=== PATIENT | female | born 1965 | race Asian ===

== ENCOUNTER → 2017-01-20 | Outpatient (CLI) | payer OTHER ==
--- NOTE | 2017-01-20 11:48 | RADRPT ---
PROCEDURE: XR Chest CLINICAL INDICATION: Kidney stones TECHNIQUE: PA radiograph COMPARISON: None available FINDINGS: Borderline widening of the mediastinum. The cardiac silhouette, mediastinum, and pulmonary brandon are otherwise unremarkable. Pulmonary vasculature is within normal limits. The visualized pleural surfaces are unremarkable. The lung parenchyma is unremarkable. IMPRESSION: Borderline widening of the mediastinum which may be from vascular tortuosity or enlargement. Compare to prior chest imaging studies. RPTAT: TT Physician Radha Date Time Electronically viewed and signed by Physician Radha on 01/20/2017 11:48 JS/
[2017-01-21 15:38] LABS: BASOPHILS % 0.4 % (0.0-2.0); EOSINOPHILS # 0.2 10^3/ul (0.0-0.5); HEMATOCRIT 41.9 % (37.0-47.0); HEMOGLOBIN 13.9 g/dl (12.0-16.0); LYMPHOCYTES # 2.3 10^3/ul (0.8-2.9); LYMPHOCYTES % 30.9 % (15.0-51.0); MEAN CORPUSCULAR HGB CONC 33.2 g/dl (32.0-37.0); MEAN CORPUSCULAR VOLUME 84.3 fl (82.0-101.0); MEAN PLATELET VOLUME 8.4 fl (7.4-10.4); MONOCYTE # 0.4 10^3/ul (0.3-0.9); MONOCYTES % 5.6 % (0.0-11.0); NEUTROPHIL # 4.6 10^3/ul (1.6-7.5); PLATELET COUNT 350 10^3/UL (140-415); RED BLOOD COUNT 4.97 10^6/ul (4.20-5.40); RED CELL DISTRIBUTION WIDTH 13.2 % (11.5-14.5); WHITE BLOOD COUNT 7.5 10^3/ul (4.8-10.8)
[2017-01-21 15:47] LABS: ADD UMIC YES; UR ASCORBIC ACID NEGATIVE (NEGATIVE); UR BACTERIA FEW /HPF (NONE SEEN); UR BILIRUBIN (Dip) NEGATIVE (NEGATIVE); UR BLOOD (Dip) 2+ mg/dL (NEGATIVE); UR CLARITY CLEAR (CLEAR); UR COLOR YELLOW (YELLOW); UR GLUCOSE (Dip) NEGATIVE (NEGATIVE); UR KETONES (Dip) 1+ mg/dL (NEGATIVE); UR LEUKOCYTE ESTERASE (Dip) TRACE Leu/ul (NEGATIVE); UR NITRITE (Dip) NEGATIVE (NEGATIVE); UR RBC 14 /HPF (0-5); UR SPECIFIC GRAVITY (Dip) 1.009 (1.003-1.030); UR SQUAMOUS EPITHELIAL CELL FEW /HPF (FEW); UR TOTAL PROTEIN (Dip) NEGATIVE (NEGATIVE); UR UROBILINOGEN (Dip) NEGATIVE (NEGATIVE)
[2017-01-21 15:52] LABS: ALANINE AMINOTRANSFERASE 23 IU/L (13-69); ALBUMIN 4.6 g/dl (3.3-4.9); ALBUMIN/GLOBULIN RATIO 1.48; ALKALINE PHOSPHATASE 46 IU/L (42-121); ANION GAP 14 (8-16); ASPARTATE AMINO TRANSFERASE 21 IU/L (15-46); BILIRUBIN,INDIRECT 0.6 mg/dl (0-1.1); BILIRUBIN,TOTAL 0.6 mg/dl (0.2-1.3); BLOOD UREA NITROGEN 10 mg/dl (7-20); CALCIUM 9.8 mg/dl (8.4-10.2); CARBON DIOXIDE 28 mmol/L (21-31); CHLORIDE 103 mmol/L (97-110); CHOL/HDL RATIO 4.1 RATIO; CHOLESTEROL 267 mg/dl (100-200); CREATININE 0.71 mg/dl (0.44-1.00); GLUCOSE 98 mg/dl (70-220); HDL CHOLESTEROL 64 mg/dl (37-92); PHOSPHORUS 3.6 mg/dl (2.5-4.9); POTASSIUM 4.2 mmol/L (3.5-5.1); SODIUM 141 mmol/L (135-144); TOTAL PROTEIN 7.7 g/dl (6.1-8.1); TRIGLYCERIDES 222 mg/dl (0-149)
[2017-01-21 16:01] LABS: SCRET 0.71 mg/dl (0.44-1.00)
[2017-01-21 16:06] LABS: INR 0.93; PROTIME 12.5 Sec (12.2-14.2)
[2017-01-21 16:07] LABS: PARTIAL THROMBOPLASTIN TIME 32.4 Sec (25.0-35.0)
[2017-01-21 16:08] LABS: PROTEIN/CREAT RATIO 0.14 RATIO
--- NOTE | 2017-01-22 13:14 | RADRPT ---
Vent Rate: 76 bpm RR Interval: 0 msec MD Interval: 140 msec QRS Duration: 88 msec QT Interval: 410 msec QTC Interval: 461 msec P-R-T [place]: 64 - 73 - 67 degrees Normal sinus rhythm with sinus arrhythmia Normal ECG Electronically Signed By: Jarrell Martinez [id number]
== END | disposition home or self-care (01) ==
LOC: LAB 09:51
DX: Z52.4 Kidney donor (principal)
CPT/HCPCS: 71010; 80053; 80061; 81001; 81003; 82043; 82570; 82575; 84100; 84156; 84702; 85025; 85610; 85730; 86592; 86644; 86664; 86703; 86706; 86709; 86803; 86850; 86900; 86901; 87086; 87340; 93005

== ENCOUNTER → 2017-01-27 | Outpatient (CLI) | payer OTHER | END | disposition home or self-care (01) | LOC: LAB 08:34 | DX: Z52.4 Kidney donor (principal) | CPT/HCPCS: 82950; 83525 ==

== ENCOUNTER → 2017-02-04 | Outpatient (CLI) | payer OTHER ==
[2017-02-04 11:37] LABS: SCRET 0.63 mg/dl (0.44-1.00)
== END | disposition home or self-care (01) ==
LOC: LAB 10:05
DX: Z52.9 Donor of unspecified organ or tissue (principal)
CPT/HCPCS: 82565; 82575; 84156